=== PATIENT | female | born 1995 | race Caucasian/White ===

== ENCOUNTER 2017-05-05 01:07 | Emergency (ER) | payer OTHER ==
[2017-05-05] MEDS ORDERED: Lidocaine 1% INJ* 10 MG/ML 30 ML SDV ONE (03:41)
[2017-05-05] MEDS ORDERED: Tetan/Diph/Pertus SYR(Tdap)* 0.5 ML SYR(BOOSTRIX) use SYR IM ONE (03:42)
[2017-05-05] MEDS ORDERED: Lidocaine 1%* 5 ML VIAL ONE (03:45)
[2017-05-05 07:08] VITALS: BP 121/87
--- NOTE | 2017-05-05 07:33 | ED ---
Kamaljit Olivas Angela, scribed for Gurpreet Rao MD on 05/05/17 at 0340 . Skin Complaint - HPI Summary HPI Summary: This pt is a 22 y/o female presenting to [facility] c/o laceration on chin s/p fall today. Pt had been drinking alcohol today. She reports she fell backwards at approximately 00:00 today and sustained a laceration on her chin. Denies LOC or head strike. Pt notes her jaw hurts with mouth movement. She denies difficulty swallowing or speaking. She is unsure of her last tetanus shot. - History of Current Complaint Chief Complaint: EDLacSutureRecheck Stated Complaint: ETOH, FACIAL INJURY Hx Obtained From: Patient Onset/Duration: Started Hours Ago, Traumatic, Still Present Skin Exposure Onset/Duration: Hours Ago Timing: Lasting Hours Current Severity: Mild Pain Intensity: 2 Pain Scale Used: 0-10 Numeric Skin Location: Face - chin Character: Pain Aggravating Symptom(s): Other: - opening her mouth Alleviating Symptom(s): Nothing Associated Signs & Symptoms: Negative Related History: Trauma - Allergy/Home Medications Allergies/Adverse Reactions: Allergies Allergy/AdvReac Type Severity Reaction Status Date / Time No Known Allergies Allergy Verified 01/02/14 16:12 PMH/Surg Hx/FS Hx/Imm Hx Endocrine/Hematology History: Denies: Hx Diabetes Cardiovascular History: Reports: Other Cardiovascular Problems/Disorders - BICUSPID AORTIC VALUE MURMER - Immunization History Date of Tetanus Vaccine: utd Date of Influenza Vaccine: utd Infectious Disease History: No Infectious Disease History: Denies: Traveled Outside the [place] in Last 30 Days - Family History Known Family History: Negative: Cardiac Disease Family History: Denies DVT or PE - Social History Alcohol Use: Weekly Substance Use Type: Reports: None Hx Tobacco Use: No Smoking Status (MU): Never Smoked Tobacco Review of Systems Negative: Fever, Chills Eyes: Negative ENT: Negative Cardiovascular: Negative Skin: Other - laceration on chin Neurological: Negative All Other Systems Reviewed And Are Negative: Yes Physical Exam - Summary Physical Exam Summary: Appearance: Well-appearing, Well-nourished Skin: Warm. Superficial laceration 1 cm linear on the underside of the chin. Bleeding controlled [employer]. No evidence of penetration to oral cavity. Eyes: Normal ENT: Normal Neck: Supple, nontender Respiratory: Clear to auscultation Cardiovascular: Normal S1, S2. No murmurs. Normal distal pulses. Abdomen: Soft, nontender Musculoskeletal: Normal, Strength/ROM Intact Neurological: Normal, A&Ox3 Psychiatric: Normal Triage Information Reviewed: Yes Vital Signs On Initial Exam: Initial Vitals Temp Pulse Resp BP Pulse Ox 97.8 F 101 14 129/90 99 05/05/17 01:18 05/05/17 01:18 05/05/17 01:18 05/05/17 01:18 05/05/17 01:18 Vital Signs Reviewed: Yes Procedures - Laceration/Wound Repair 1 Location: face Description: Linear Anesthesia: Local, 1.0% Length, Depth and Shape: 1cm length, angulated, subcutaneous Betadine Prep?: No Irrigated w/ Saline (ccs): 120 Laceration/Wound Explored: clean, no foreign body removed Closure: Single Layer Suture Type: Nylon Number of Sutures: 5 Layer Closure?: No Sterile Dressing Applied?: Yes Diagnostics - Vital Signs Vital Signs Temp Pulse Resp BP Pulse Ox 05/05/17 01:18 97.8 F 101 14 129/90 99 - Laboratory Lab Statement: Any lab studies that have been ordered have been reviewed, and results considered in the medical decision making process. Course/Dx - Diagnoses Provider Diagnoses: Facial laceration Discharge - Discharge Plan Condition: Improved Disposition: HOME Patient Education Materials: Care For Your Stitches (ED), Laceration (ED) Referrals: [facility] [Primary Care Provider] - Additional Instructions: PLEASE RETURN TO THE ER OR SEE YOUR PRIMARY CARE DOCTOR IN 5 DAYS FOR WOUND REEVALUATION AND SUTURE REMOVAL PLEASE KEEP COVERED WITH ANTIBIOTIC OINTMENT AT ALL TIMES PLEASE DO NOT REMOVE DRESSING FOR FIRST 24 HOURS, YOU MAY BATHE NORMALLY THEREAFTER PLEASE RETURN IMMEDIATELY TO THE ER IF YOU HAVE ANY WORSENING OR CONCERNING SYMPTOMS The documentation as recorded by the Kamaljit angeles Angela accurately reflects the service I personally performed and the decisions made by me, Gurpreet Rao MD.
== END 2017-05-05 07:07 | disposition home or self-care (01) ==
LOC: ED 01:07
DX: S01.81XA Laceration without foreign body of other part of head, initial encounter (principal); W19.XXXA Unspecified fall, initial encounter; Y92.9 Unspecified place or not applicable
CPT/HCPCS: 12011; 90471; 90715; 99282